=== PATIENT | female | born 1970 | race Hispanic/Latino ===

== ENCOUNTER 2016-11-19 15:37 | Observation (INO) | payer OTHER ==
[2016-11-19 15:50] VITALS: BMI 28.3
--- NOTE | 2016-11-19 16:08 | ED PDOC ---
Arrival/HPI <Alphonso Eid - Last Filed: 11/19/16 17:35> - General Historian: Patient - History of Present Illness Time/Duration: Prior to Arrival Symptom Onset: Sudden Symptom Course: Worsening <Ector Christiansen - Last Filed: 11/19/16 18:51> - General Chief Complaint: Shortness Of Breath Time Seen by Provider: 11/19/16 15:38 - History of Present Illness Narrative History of Present Illness (Text): 11/19/16 16:06 46 y/o female with hx of pancreatic cyst, endometriosis presenting with shortness of breath. Patient states she has been experiencing shortness of breath intermittently for a few weeks. However today she states her symptoms dramatically worsened stating she is unable to take a deep breath. States symptoms started at rest. Patient is also reporting sharp, stabbing left sided chest pain today which is now resolved. She also notes waking up with night sweats this morning as well as significant recent weight loss. She denies recent travel, immobility, lower extremity pain or swelling. Patient is a smoker stating she smokes about 5 cigarettes/day. She has used tobacco for over 20 years. Patient denies cough, fever, chills, n/v/d, urinary complaints or sick contacts. Notes mother with hx of SD in her 60's. (Ector Christiansen) Past Medical History - Provider Review Nursing Documentation Reviewed: Yes - Cardiac Hx Cardiac Disorders: No - Pulmonary Hx Respiratory Disorders: No - Neurological Hx Neurological Disorder: No - HEENT Hx HEENT Disorder: No - Renal Hx Renal Disorder: No - Endocrine/Metabolic Hx Endocrine Disorders: No - Hematological/Oncological Hx Blood Disorders: No - Integumentary Hx Dermatological Disorder: No - Musculoskeletal/Rheumatological Hx Musculoskeletal Disorders: No - Gastrointestinal Other/Comment: pancreatic cyst - Genitourinary/Gynecological Other/Comment: endometriosis - Psychiatric Hx Anxiety: Yes Hx Depression: Yes Hx Substance Use: No <Ector Christiansen - Last Filed: 11/19/16 18:51> Family/Social History - Physician Review Nursing Documentation Reviewed: Yes Family/Social History: CAD/SD Smoking Status: Current Some Days Smoker Hx Alcohol Use: No Hx Substance Use: No <Ector Christiansen - Last Filed: 11/19/16 18:51> Allergies/Home Meds <Alphonso Eid - Last Filed: 11/19/16 17:35> <Ector Christiansen - Last Filed: 11/19/16 18:51> Allergies/Adverse Reactions: Allergies No Known Allergies Allergy (Verified 11/19/16 15:54) Home Medications: Home Meds Medication Instructions Recorded Confirmed Alprazolam [Xanax] 0.25 mg PO DAILY 11/19/16 11/19/16 Dexlansoprazole [Dexilant] 60 mg PO DAILY 11/19/16 11/19/16 Escitalopram [Lexapro] 20 mg PO DAILY 11/19/16 11/19/16 Sucralfate [Carafate Tab] 1 gm PO DAILY 11/19/16 11/19/16 Zolpidem Tartrate [Edluar] 5 mg PO DAILY 11/19/16 11/19/16 Review of Systems - Physician Review All systems were reviewed & negative as marked: Yes - Review of Systems Constitutional: Weight Change, Night Sweats. absent: Fatigue, Fevers Eyes: Normal ENT: Normal Cardiovascular: Chest Pain, EMMANUEL. absent: Palpitations, Calf Pain, Syncope Gastrointestinal: Abdominal Pain. absent: Diarrhea, Nausea, Vomiting, Hematochezia, Hematemesis Genitourinary Female: absent: Dysuria, Frequency, Hematuria Skin: absent: Rash, Pruritis, Skin Lesions Neurological: Dizziness. absent: Headache, Focal Weakness Psychiatric: Anxiety. absent: Depression <ЕленаEctor - Last Filed: 11/19/16 18:51> Physical Exam Vital Signs Reviewed: Yes Temperature: Afebrile Blood Pressure: Normal Pulse: Tachycardic Respiratory Rate: Tachypneic Pain Distress: None Mental Status: Positive for: Alert and Oriented X 3 - Systems Exam Head: Present: Atraumatic Pupils: Present: PERRL Extroacular Muscles: Present: EOMI Conjunctiva: Present: Normal Mouth: Present: Moist Mucous Membranes Pharnyx: Present: Normal Neck: Present: Normal Range of Motion, Trachea Midline. No: JVD Respiratory/Chest: Present: Clear to Auscultation, Good Air Exchange, Tachypneic. No: Respiratory Distress, Accessory Muscle Use, Wheezes, Decreased Breath Sounds, Rales, Rhonchi Cardiovascular: Present: Normal S1, S2, Tachycardic Abdomen: Present: Normal Bowel Sounds. No: Tenderness, Distention, Peritoneal Signs Upper Extremity: Present: Normal Inspection. No: Cyanosis, Edema Lower Extremity: Present: Normal Inspection, NORMAL PULSES. No: Edema, CALF TENDERNESS Neurological: Present: GCS=15, CN II-XII Intact, Speech Normal Skin: Present: Warm, Dry. No: Rashes Psychiatric: Present: Alert, Oriented x 3, Normal Insight, Normal Concentration <Ector Christiansen - Last Filed: 11/19/16 18:51> Vital Signs Temp Pulse Resp BP Pulse Ox 11/19/16 16:01 22 11/19/16 15:44 97.4 F L 107 H 16 152/93 H 99 Medical Decision Making <Alphonso Eid - Last Filed: 11/19/16 17:35> <Ector Christiansen - Last Filed: 11/19/16 18:51> ED Course and Treatment: Patient seen and examined with resident. Came up with treatment and disposition plan with resident. A 46 year old female complaining of shortness of breath with chest pain. EKG unremarkable, d-dimer within normal limits. On exam, no calf pain or swelling. On re-evaluation, heart rate 92. Patient has a strong family history of CAD and reports she has not had a stress test in 10 years. Will admit to telemetry observation. Case discussed with Dr. Piper, who agrees with plan. (Alphonso Eid) 11/19/16 16:20 46 y/o female with hx pancreatic cyst which is being worked up by GI s/o EUS, EGD and colonoscopy as well as endometriosis presenting with respiratory distress. Presentation may be secondary to PE/pneumonia/pneumo/costrocondritis/ cardiogenic. Due to sinus tachycardia, smoking hx and possible underlying malignancy given pancreatic cyst will r/o PE - chest xray - EKG - D-dimer - CBC - CMP - Cardiac Iso - amylase/lipase - supplemental O2 as needed - reassess 11/19/16 17:17 Laboratory and radiology reviewed. D-dimer is negative effectively ruling out PE. chest xray is without active pulmonary disease. There is no leukocytosis. Cardiac enzymes are negative. Given patient's history of tobacco use and strong family history of mother with SD in her 60's we will admit the patient for observation to trend cardiac enzymes and for cardiology evaluation. (Ector Christiansen) - Lab Interpretations Lab Results: 11/19/16 16:15 11/19/16 16:15 Lab Results 11/19/16 16:15: WBC 10.3, RBC 4.68, Hgb 13.6, Hct 41.5, MCV 88.7, MCH 29.1, MCHC 32.8, RDW 19.1 H, Plt Count 276, MPV 9.3, Gran % 76.8 H, Lymph % (Auto) 17.5 L, Hubbard % (Auto) 5.0, Eos % (Auto) 0.4 L, Baso % (Auto) 0.3, Gran # 7.91 H , Lymph # 1.8, Hubbard # 0.5, Eos # 0.0, Baso # 0.03, D-Dimer, Quantitative 0.38, Sodium 139, Potassium 3.3 L, Chloride 100, Carbon Dioxide 25, Anion Gap 17, BUN 10, Creatinine 0.7, Est GFR ( Amer) > 60, Est GFR (Non-Af Amer) > 60, Random Glucose 101, Calcium 9.6, Total Bilirubin 0.7, AST 27, ALT 17, Alkaline Phosphatase 56, Lactate Dehydrogenase 441, Total Creatine Kinase 64, Troponin I < 0.01, Total Protein 8.1, Albumin 4.6, Globulin 3.4, Albumin/Globulin Ratio 1.4 , Amylase 99, Lipase 121, Urine Color Yellow, Urine Appearance Sl cloudy, Urine pH 7.0, Ur Specific Calhoun 1.010, Urine Protein Negative, Urine Glucose (UA) Negative, Urine Ketones Trace H, Urine Blood Large H, Urine Nitrate Negative, Urine Bilirubin Negative, Urine Urobilinogen 0.2, Ur Leukocyte Esterase Negative , Urine RBC 0 - 2, Urine WBC 0 - 2, Ur Epithelial Cells 10 - 12, Amorphous Sediment Many, Urine Bacteria Trace, Urine HCG, Qual Negative - RAD Interpretation Radiology Orders: 11/19/16 16:04 CHEST PORTABLE [RAD] Stat - Medication Orders Current Medication Orders: Alprazolam (Xanax) 0.25 mg PO Q6 PRN; Protocol PRN Reason: Anxiety Stop: 11/27/16 00:01 Escitalopram Oxalate (Lexapro) 20 mg PO DAILY KRISTIAN Discontinued Medications Potassium Chloride (K-Dur 20 Meq Er Tab) 40 meq PO STAT STA Stop: 11/19/16 17:15 Last Admin: 11/19/16 18:39 Dose: 40 meq - PA / 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 MD/DO has examined the patient and agrees with the treatment plan. - Scribe Statement The provider has reviewed the documentation as recorded by the Scribe <Alphonso Eid - Last Filed: 11/19/16 17:35> <Ector Christiansen - Last Filed: 11/19/16 18:51> - Scribe Statement Maryellen Ruiz Provider Scribe Attestation: All medical record entries made by the Scribe were at my direction and personally dictated by me. I have reviewed the chart and agree that the record accurately reflects my personal performance of the history, physical exam, medical decision making, and the department course for this patient. I have also personally directed, reviewed, and agree with the discharge instructions and disposition. (Alphonso Eid) Disposition/Present on Arrival <Alphonso Eid - Last Filed: 11/19/16 17:35> - Present on Arrival Any Indicators Present on Arrival: No History of DVT/PE: No History of Uncontrolled Diabetes: No Urinary Catheter: No History of Decub. Ulcer: No History Surgical Site Infection Following: None - Disposition Have Diagnosis and Disposition been Completed?: Yes Disposition Time: 18:50 Patient Plan: Admission <Ector Christiansen - Last Filed: 11/19/16 18:51> - Disposition Diagnosis: Chest pain Disposition: HOSPITALIZED Condition: STABLE Discharge Instructions (ExitCare): Chest Pain (ED)
[2016-11-19 16:26] LABS: ADD MANUAL DIFF? NO
[2016-11-19 16:32] LABS: URINE BILIRUBIN NEGATIVE (NEGATIVE); URINE BLOOD LARGE (NEGATIVE); URINE GLUCOSE (UA) NEGATIVE (NEGATIVE); URINE KETONE TRACE mg/dL (NEGATIVE); URINE LEUKOCYTE ESTERASE NEGATIVE Leu/uL (NEGATIVE); URINE PROTEIN NEGATIVE mg/dL (<30 mg/dL); URINE UROBILINOGEN 0.2 E.U./dL (<1 E.U./dL)
[2016-11-19 16:36] LABS: BASO # 0.03 K/mm3 (0.0-2.0); BASO % 0.3 % (0.0-3.0); EOS % 0.4 % (1.5-5.0); GRAN # 7.91 (1.4-6.5); GRAN % 76.8 % (50.0-68.0); HEMATOCRIT 41.5 % (36.0-48.0); LYMPH # 1.8 (1.2-3.4); LYMPH % 17.5 % (22.0-35.0); MEAN CELL VOLUME 88.7 fL (80.0-105.0); MEAN CORPUSCULAR HEMOGLOBIN 29.1 pg (25.0-35.0); MEAN CORPUSCULAR HGB CONC 32.8 g/dl (31.0-37.0); MEAN PLATELET VOLUME 9.3 fl (7.0-11.0); MONO # 0.5 (0.1-0.6); PLATELET COUNT 276 10^3/uL (120.0-450.0); RED CELL DISTRIBUTION WIDTH 19.1 % (11.5-14.5); WHITE BLOOD COUNT 10.3 10^3/ul (4.5-11.0)
[2016-11-19 16:42] LABS: URINE APPEARANCE SL CLOUDY (CLEAR); URINE COLOR YELLOW (YELLOW)
[2016-11-19 16:45] LABS: ALB/GLOB RATIO 1.4 (1.1-1.8); ALKALINE PHOSPHATASE 56 U/L (38-133); ALT/SGPT 17 U/L (7-56); AMYLASE 99 U/L (35-125); AST/SGOT 27 U/L (15-39); BILIRUBIN,TOTAL 0.7 mg/dL (0.2-1.3); BLOOD UREA NITROGEN 10 mg/dL (7-21); CALCIUM 9.6 mg/dL (8.4-10.5); CARBON DIOXIDE 25 mmol/L (21-33); CHLORIDE 100 mmol/L (98-107); GFR AFRICAN-AMERICAN > 60; GLUCOSE,RANDOM 101 mg/dL (70-110); LIPASE 121 U/L (23-300); POTASSIUM 3.3 mmol/L (3.6-5.0); SODIUM 139 mmol/L (132-148); TOTAL PROTEIN 8.1 g/dL (5.8-8.3)
[2016-11-19 16:46] LABS: URINE AMORPHOUS SEDIMENT MANY; URINE BACTERIA TRACE (NEG); URINE RBC 0 - 2 /hpf (0-2); URINE WBC 0 - 2 /hpf (0-6)
--- NOTE | 2016-11-19 16:59 | RAD ---
HISTORY: shortness of breath COMPARISON: None available TECHNIQUE: Chest, one view. FINDINGS: External cardiac monitoring leads. LUNGS: No focal consolidation. Please note that chest x-ray has limited sensitivity for the detection of pulmonary masses. PLEURA: No significant pleural effusion identified. No definite pneumothorax . CARDIOVASCULAR: The cardiomediastinal silhouette appears within normal limits of size. OSSEOUS STRUCTURES: No acute osseous abnormality identified. VISUALIZED UPPER ABDOMEN: Unremarkable. OTHER FINDINGS: None. IMPRESSION: No focal consolidation, significant pleural effusion, or definite pneumothorax identified.
[2016-11-19 17:02] LABS: TROPONIN I < 0.01 ng/mL
[2016-11-19] MEDS ORDERED: Potassium Chloride 20 mEq ER Tab PO STA (17:14)
[2016-11-19] MEDS ORDERED: Pneumococcal 23-Valent Vaccine IM ONE (22:10)
[2016-11-19] MEDS ORDERED: Influenza Vaccine 45 MCG/0.5 ml IM ONE (22:10)
[2016-11-20 06:32] VITALS: O2SAT 98
[2016-11-20] MEDS ORDERED: Iodixanol 320 MG/ML 100 ML BOTTLE IV ONE (09:36)
--- NOTE | 2016-11-20 10:50 | CT ---
PROCEDURE: CT Chest with contrast (Pulmonary Angiogram) HISTORY: sudden SOB COMPARISON: None available. TECHNIQUE: Axial computed tomography images were obtained of the chest in the pulmonary arterial phase of enhancement. Coronal and sagittal reformatted images were created and reviewed. Intravenous contrast dose: 100 cc Visipaque [id number]. Mean Hounsfield unit values in the main pulmonary artery: 304.29 Radiation dose: Total exam DLP = 492.65 mGy-cm. FINDINGS: PULMONARY ARTERIES: Unremarkable. No pulmonary embolism. AORTA: No acute findings. No thoracic aortic aneurysm. LUNGS: Unremarkable. No nodule, mass or pulmonary consolidation. PLEURAL SPACES: Unremarkable. No effusion or pneuomothorax. HEART: Unremarkable. No cardiomegaly. No significant pericardial effusion. LYMPH NODES: No lymphadenopathy. BONES, CHEST WALL: Unremarkable. No fracture or destructive lesion OTHER FINDINGS: Unremarkable. IMPRESSION: Unremarkable CT pulmonary angiogram. No pulmonary embolus. No pulmonary, pleural, osseous or subdiaphragmatic abnormalities to account for the clinical presentation.
[2016-11-20 11:39] VITALS: BP 129/79; RESP 20; TEMP 98.3
--- NOTE | 2016-11-20 12:24 | CON ---
DATE: 11/20/2016 REASON FOR CONSULTATION AND FOLLOWUP: Chest pain, cardiac evaluation. BRIEF CLINICAL HISTORY: A 46-year-old female with a past medical history significant for gastroesoph ageal reflux, history of endometriosis, extensive surgery leading to status post colostomy, rev ersal of the colostomy, but no definite cardiac history, who came in with a complaint of abdominal pa in, then radiated to the chest and feels sharp chest pain, so came to the Emergency Room, associated with some shortness of breath. Denies any prior episode of dyspnea on exertion or chest pain on exer tion. PAST MEDICAL HISTORY: Gastroesophageal reflux, abdominal pain. 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 SOCIAL HISTORY: Smokes a pack a day. drinks 2-3, 4 cans of beer every 2 weeks. FAMILY HISTORY: Significant for coronary artery disease. REVIEW OF SYSTEMS: As per HPI. CURRENT MEDICATIONS: The patient is taking Ambien 5 mg daily, sucralfate 1 gram daily, Lexapro 20, D exilant 60, Xanax 0.25 mg daily. ALLERGIES: No known drug allergies. REVIEW OF SYSTEMS: As per HPI. PHYSICAL EXAMINATION: VITAL SIGNS: Temperature afebrile, heart rate 84, blood pressure 137/78. HEENT: PERRLA. Extraocular muscles intact. NECK: Supple. No carotid bruits. No thyromegaly. CHEST: Clear to auscultation. HEART: S1, S2 regular. ABDOMEN: Soft. EXTREMITIES: Clubbing, cyanosis negative. EKG: Normal sinus, sinus tachycardia. BLOOD WORKUP: WBC 139, potassium 3.3, chloride 100, carbon dioxide 25, anion gap of 17, BUN 10, crea tinine 0.8. Troponin 0.01. WBC 10.3, hemoglobin 13. , hematocrit 41.5, platelet count 276. IMPRESSION: Atypical chest pain, but given the multiple risk factors for coronary artery disease, al so is a smoker, suggest echo and a stress test. We can do echo before the patient goes home and add on second set of troponin. If second set of troponin is negative, patient can be discharged home, fo llow up as outpatient with stress test. Thank you, Dr. Piper, for providing us the opportunity in taking care of the patient. We will fol low with you. Discussed with Dr. Piper. Thank you, Dr. Piper. Sameer Mike MD cc:Rogelio Piper MD [id number] TT: 11/20/2016 11:53:22 Confirmation # [id number] Dictation # [id number]
--- NOTE | 2016-11-20 12:25 | HP ---
CHIEF COMPLAINT AND HISTORY OF PRESENT ILLNESS: This is a 46-year-old female who was coming into the hospital because of shortness of breath. She has a past medical history of pancreatic CA, endometri osis. She says she is having shortness of breath over the past few weeks. She says that she is gett ing symptoms at rest at times. She is also complaining of left-sided chest pain. She says she woke up with night sweats yesterday morning. She does have a history of smoking. She has no complaints o f ____ this morning. She has no abdominal pain, no back pain, no dysuria or frequency, no nocturia. No weakness in the arms or the legs. No headaches or dizziness. No diaphoresis. All other review of systems are within normal limits except as mentioned. SOCIAL HISTORY: She does smoke 5 cigarettes a day. She has been smoking for over 20 years. FAMILY HISTORY: She has a mother who had an MN in her 60s. PAST MEDICAL HISTORY: Is as above. Pancreatic cyst, insomnia, chronic anxiety. ALLERGIES: No known drug allergies. HOME MEDICATIONS: Xanax, Dexelant, Lexapro, Carafate, Zolpidem. PHYSICAL EXAMINATION: VITAL SIGNS: Temperature is 97.4, pulse is 107, blood pressure 152/93, respirations 16. Height is 5 feet 5 inches, weight is 170 pounds, BMI is 28.3. GENERAL: Patient lying in bed, flat, and in no apparent distress. HEAD AND NECK EXAM: Atraumatic, normocephalic. Conjunctivae are pink. Throat clear and mouth with moist mucosa. Oropharynx benign. EYES: Extraocular movements are intact. PERRLA. NECK: Supple. No JVD, thyromegaly, or adenopathy. No bruits. HEART: S1 and S2 regular rate and rhythm. No murmurs, rubs, or gallops. LUNGS: Clear to auscultation bilaterally. No wheezing rales or rhonchi appreciated. No retraction s on exam. ABDOMEN: Soft, nontender, nondistended. Bowel sounds are positive in all quadrants. No rebound. No hepatosplenomegaly. EXTREMITIES: No cyanosis, clubbing, or edema. NEURO: No facial asymmetry, tongue is midline, no uvula deviation. Power is 5/5 in upper extremity and 5/5 in lower extremity. Sensation is normal in upper extremity and lower extremity. PSYCH: Awake, alert, oriented x3. No anxiety or depression symptoms. Good insight. Normal affec t. : No CVA tenderness VASCULAR: 2+ pulses in carotid and pedal pulses. SKIN: No erythema or abnormal nodules noted. SPINE: Normal curvature. LYMPHADENOPATHY: No anterior cervical or posterior cervical adenopathy. No inguinal adenopathy. LABORATORY DATA: White count is 10.3, hemoglobin 13.6, platelet count is 276. D-dimer is 0.38, sodi um 139, potassium 3.3. Troponin is 0.01. Albumin is . EKG done, shows ____ PVCs, ST-T changes. Chest x-ray done shows no focal consolidation. ____ done shows a 7 mm ____ lesion at the junction of the body and the tail. ASSESSMENT: 1. Chest pain. 2. Anxiety. 3. A 7 mm cystic lesion on the pancreas. 4. Insomnia. 5. Hypokalemia. 6. Smoking. PLAN: The patient is admitted to the hospital ____ under observation status. She is going to be see ing Dr. Mandujano for her chest pain. She has a troponin that is pending this morning. She is on Lexapro for anxiety. She is also on Xanax. This may be anxiety related. She ____. She does have a histor y of smoking. ____. Will await ____ from Dr. Mandujano. May need an outpatient stress test done. DIET: 2 g sodium, low cholesterol. CONDITION: Stable. ACTIVITY: Increase as tolerated. The patient advised to quit smoking. Rogelio Piper MD cc: [id number] TT: 11/20/2016 11:23:57 rn 11/20/2016 11:23:54
[2016-11-20 13:57] VITALS: PULSE 102
--- NOTE | 2016-11-20 16:36 | CARD ---
APPROVED REPORT EXAM: Two-dimensional and M-mode echocardiogram with Doppler and color Doppler. INDICATION Chest Pain 2D DIMENSIONS Left Atrium (2D)3.8 (1.6-4.0cm)IVSd1.1 (0.7-1.1cm) LVDd4.5 (3.9-5.9cm)PWd1.1 (0.7-1.1cm) LVDs3.3 (2.5-4.0cm)FS (%) 26.9 % LVEF (%)52.7 (>50%) M-Mode DIMENSIONS Aortic Root2.50 (2.2-3.7cm)Aortic Cusp Exc.1.60 (1.5-2.0cm) Aortic Valve AoV Peak Ymajbzxq898.0cm/Lev Peak GR.7mmHg Mitral Valve MV E Usfdmtoy32.3cm/sMV A Jnnwcqve82.4cm/sE/A ratio1.3 TDI E/Lateral E'0.0E/Medial E'0.0 Tricuspid Valve TR Peak [id number] [id number] Peak Gr.22mmHg [id number] LEFT VENTRICLE The left ventricle is normal size. There is normal left ventricular wall thickness. The left ventricular function is normal.EF-55% There is normal LV segmental wall motion. The left ventricular diastolic function is normal. No left ventricle thrombus noted on this study. There is no ventricular septal defect visualized. There is no left ventricular aneurysm. There is no mass noted in the left ventricle. RIGHT VENTRICLE The right ventricle is normal size. There is normal right ventricular wall thickness. The right ventricular systolic function is normal. ATRIA The left atrium size is normal. The right atrium size is normal. The interatrial septum is intact with no evidence for an atrial septal defect. AORTIC VALVE The aortic valve is thickened but opens well. No aortic regurgitation is present. There is no aortic valvular stenosis. There is no aortic valvular vegetation. MITRAL VALVE The mitral valve is thickened but opens well. Mitral regurgitation is trace. There is no mitral valve stenosis. There is no evidence of mitral valve prolapse. TRICUSPID VALVE The tricuspid valve leaflets are thickened , but open well. There is mild tricuspid regurgitation.RVSP-32 mmof hg. There is no tricuspid valve stenosis. There is no tricuspid valve prolapse or vegetation. PULMONIC VALVE The pulmonic valve is mildly thickened. There is trace pulmonic valvular regurgitation. There is no pulmonic valvular stenosis. GREAT VESSELS The aortic root is normal in size. The ascending aorta is normal in size. The pulmonary artery is normal. The IVC is normal in size and collapses >50% with inspiration. PERICARDIAL EFFUSION There is no pleural effusion. There is a trace pericardial effusion. <Conclusion> Normal chamber Size. EF_55% Mitral regurgitation is trace. There is mild tricuspid regurgitation.RVSP-32 mmof hg. There is a trace pericardial effusion.
--- NOTE | 2016-11-20 18:49 | CARD ---
APPROVED REPORT EKG Measurement Heart [id number] <Conclusion> Sinus tachycardia with occasional premature ventricular complexes Otherwise normal ECG
== END 2016-11-20 14:35 | disposition home or self-care (01) ==
LOC: ED 15:37 → ERH 17:27 → 2RSO 21:28
PROVIDERS: ADMIT Internal Medicine Nephrology; ATTEND Internal Medicine Nephrology
DX: R07.89 Other chest pain (principal); F17.210 Nicotine dependence, cigarettes, uncomplicated; K21.9 Gastro-esophageal reflux disease without esophagitis; R06.02 Shortness of breath; R61 Generalized hyperhidrosis; G47.00 Insomnia, unspecified; F41.9 Anxiety disorder, unspecified; E87.6 Hypokalemia; Z85.07 Personal history of malignant neoplasm of pancreas; Z82.49 Family history of ischemic heart disease and other diseases of the circulatory system
CPT/HCPCS: 36415; 71010; 71275; 80053; 81001; 82150; 82550; 83615; 83690; 84484; 84703; 85025; 85378; 93005; 93306; 99285; G0378; Q9967